=== PATIENT | female | born 1980 | race Caucasian/White ===

== ENCOUNTER 2016-09-02 19:21 | Emergency (ER) | payer OTHER ==
[2016-09-02 19:38] VITALS: RESP 18
[2016-09-02] MEDS ORDERED: SODIUM CHLORIDE 0.9% 1,000 ML IV STA (20:24)
[2016-09-02] MEDS ORDERED: AMPICILLIN-SULBACTAM 3 GM in SODIUM CHLORIDE 0.9% 100 ML IVPB STA (20:25)
[2016-09-02] MEDS ORDERED: RX INFO: IV CONTRAST WAS GIVEN 1 EACH MISC MISCELLANE PRN (20:25)
--- NOTE | 2016-09-02 20:49 | ED ---
ENT HPI - General Chief complaint: Dental/Oral Stated complaint: dental Time Seen by Provider: 09/02/16 19:42 Source: patient, RN notes reviewed Mode of arrival: ambulatory Limitations: no limitations - History of Present Illness Initial comments: 35 yo female presents to the ER with cc of left sided jaw pain. Patient states that she had her tooth removed by Dr. Toussaint 2 days ago due to an abscess that was there for 3 weeks. Try outpatient antibiotics. Patient states now it' s more swollen extending under the chin and she is having pain. Patient denies any new fever. Patient states she was concerned due to the patient's symptoms so she thought that she should be seen. Patient denies any cough cold.Patient denies any recent fever, chills, shortness of breath, chest pain, back pain, abdominal pain, nausea vomiting, numbness or tingling, dysuria or hematuria, constipation or diarrhea, headaches or visual changes, or any other current symptoms. - Related Data Home Medications Medication Instructions Recorded Confirmed Clindamycin [Cleocin] 300 mg PO TID 09/02/16 09/02/16 Gabapentin [Neurontin] 300 mg PO TID PRN 09/02/16 09/02/16 Ibuprofen [Motrin] 600 mg PO Q6HR PRN 09/02/16 09/02/16 Allergies Allergy/AdvReac Type Severity Reaction Status Date / Time No Known Allergies Allergy Verified 09/02/16 20:51 Review of Systems ROS Statement: Those systems with pertinent positive or pertinent negative responses have been documented in the HPI. ROS Other: All systems not noted in ROS Statement are negative. Past Medical History Past Medical History: No Reported History History of Any Multi-Drug Resistant Organisms: None Reported Additional Past Surgical History / Comment(s): Right hip, open dislocation surgery Past Psychological History: No Psychological Hx Reported Smoking Status: Current every day smoker Past Alcohol Use History: None Reported Past Drug Use History: None Reported General Exam Limitations: no limitations General appearance: alert, in no apparent distress Head exam: Present: other (She appears in splint the left lower jaw that extends to the left lower neck.) Eye exam: Present: normal appearance, PERRL, EOMI. Absent: scleral icterus, conjunctival injection, periorbital swelling ENT exam: Present: normal exam, mucous membranes moist Neck exam: Present: normal inspection. Absent: tenderness, meningismus, lymphadenopathy Respiratory exam: Present: normal lung sounds bilaterally. Absent: respiratory distress, wheezes, rales, rhonchi, stridor Cardiovascular Exam: Present: regular rate, normal rhythm, normal heart sounds. Absent: systolic murmur, diastolic murmur, rubs, gallop, clicks Extremities exam: Present: normal inspection, full ROM, normal capillary refill. Absent: tenderness, pedal edema, joint swelling, calf tenderness Back exam: Present: normal inspection Skin exam: Present: warm, dry, intact, normal color. Absent: rash Course Vital Signs 09/02/16 19:35 Temperature 99.3 F Pulse Rate 80 Respiratory 18 Rate Blood Pressure 171/91 O2 Sat by Pulse 99 Oximetry Medical Decision Making - Medical Decision Making 35-year-old female presents emergency Department chief complaint of concern for dental infection. Patient states her oral surgeon Center here to be admitted. At this time Dr. Toussaint was discussed with and he would like Dr. King consult that he was covering for him and the patient admitted to medicine with Dr. Adan. At this time we will continue the Unasyn and start Decadron for the patient. Does appear there is concern for abscess at mandible area. Patient is in agreement with this plan all questions have been answered. - Lab Data Result diagrams: 09/02/16 20:54 09/02/16 20:54 Lab Results 09/02/16 09/02/16 09/02/16 Range/Units 20:54 20:54 20:54 WBC 11.2 H (3.8-10.6) k/uL RBC 4.59 (3.80-5.40) m/uL Hgb 13.0 (11.4-16.0) gm/dL Hct 37.4 (34.0-46.0) % MCV 81.6 (80.0-100.0) fL MCH 28.3 (25.0-35.0) pg MCHC 34.7 (31.0-37.0) g/dL RDW 13.1 (11.5-15.5) % Plt Count 296 (150-450) k/uL Neutrophils % 61 % Lymphocytes % 28 % Monocytes % 5 % Eosinophils % 3 % Basophils % 1 % Neutrophils # 6.8 (1.3-7.7) k/uL Lymphocytes # 3.1 (1.0-4.8) k/uL Monocytes # 0.6 (0-1.0) k/uL Eosinophils # 0.4 (0-0.7) k/uL Basophils # 0.1 (0-0.2) k/uL Sodium 142 (137-145) mmol/L Potassium 3.9 (3.5-5.1) mmol/L Chloride 109 H (98-107) mmol/L Carbon Dioxide 21 L (22-30) mmol/L Anion Gap 12 mmol/L BUN 9 (7-17) mg/dL Creatinine 0.60 (0.52-1.04) mg/dL Est GFR (MDRD) Af Amer >60 (>60 ml/min/1.73 sqM) Est GFR (MDRD) Non-Af >60 (>60 ml/min/1.73 sqM) Glucose 82 (74-99) mg/dL Plasma Lactic Acid Yony 0.9 (0.7-2.0) mmol/L Calcium 9.3 (8.4-10.2) mg/dL Total Bilirubin 0.3 (0.2-1.3) mg/dL AST 19 (14-36) U/L ALT 27 (9-52) U/L Alkaline Phosphatase 90 (38-126) U/L Total Protein 6.5 (6.3-8.2) g/dL Albumin 3.8 (3.5-5.0) g/dL - Radiology Data Radiology results: report reviewed, image reviewed Disposition Clinical Impression: Mandibular abscess, Failure of outpatient treatment [facility] Condition: Stable Referrals: None,Stated [Primary Care Provider] - 1-2 days Time of Disposition: :57 Decision Date: 09/02/16 Decision Time: :57
[2016-09-02 21:16] LABS: Basophils # (A) 0.1 k/uL (0-0.2); Basophils % (A) 1 %; CH 26.4; CHCM 32.4; Eosinophils # (A) 0.4 k/uL (0-0.7); Eosinophils % (A) 3 %; HCT 37.4 % (34.0-46.0); HDW 2.84; Luc # (Auto) 0.31; Luc % (Auto) 3; Lymphocytes # (A) 3.1 k/uL (1.0-4.8); Lymphocytes % (A) 28 %; MCH 28.3 pg (25.0-35.0); MCHC 34.7 g/dL (31.0-37.0); MCV 81.6 fL (80.0-100.0); Mean Platelet Volume 7.8; Monocytes # (A) 0.6 k/uL (0-1.0); Monocytes % (A) 5 %; Neutrophils # (A) 6.8 k/uL (1.3-7.7); Neutrophils % (A) 61 %; RBC 4.59 m/uL (3.80-5.40); RDW 13.1 % (11.5-15.5); WBC 11.2 k/uL (3.8-10.6); WBC (Perox) 11.66
[2016-09-02] MEDS ORDERED: KETOROLAC 30 MG/ML 1 ML VIAL IVP STA (21:40)
[2016-09-02 21:43] LABS: ALT 27 U/L (9-52); AST 19 U/L (14-36); Alkaline Phosphatase 90 U/L (38-126); Anion Gap 12 mmol/L; Blood Urea Nitrogen 9 mg/dL (7-17); Calcium 9.3 mg/dL (8.4-10.2); Carbon Dioxide 21 mmol/L (22-30); Chloride 109 mmol/L (98-107); Glucose 82 mg/dL (74-99); Non-African American GFR(MDRD) >60 (>60 ml/min/1.73 sqM); Potassium 3.9 mmol/L (3.5-5.1); Sodium 142 mmol/L (137-145); Total Bilirubin 0.3 mg/dL (0.2-1.3); Total Protein 6.5 g/dL (6.3-8.2)
--- NOTE | 2016-09-02 22:01 | CT ---
EXAMINATION TYPE: CT soft tissue neck w con DATE OF EXAM: 09/02/2016 9:51 PM COMPARISON: NONE HISTORY: Left jaw swelling x 3 months, worsening. CT DLP: 430.50 mGycm Automated exposure control for dose reduction was used. CONTRAST: CT scan of the neck is performed following with IV Contrast, patient injected with 100 mL of Omnipaqu e 300. Axial images are obtained, coronal and sagittal reformatted images are reviewed. FINDINGS: There is normal branching pattern of the great vessels on the aortic arch. There is an enlarged thyro id gland on the left more than the right consistent with multinodular goiter. Trachea appears normal. There is no evidence of a pharyngeal mass. Epiglottis appears normal. There is normal contrast opaci fication of carotid arteries and jugular veins. Parotid glands are symmetric. The submandibular saliv sujey glands are fairly symmetric. There is a 1.4 cm midline submandibular enlarged lymph node. The tonsils are of limited of normal size. There is abnormal increased density around the left body of the mandible extending to the angle. This measures 3 x 2 cm. There are a few air bubbles in the soft tissues posterior to the low-density mass . There are a few other submandibular lymph nodes that measure up to 1 cm. There is normal aeration of the maxillary sinuses. Maxilla appears intact. The mandible appears intac t. I see no focal bone destruction. There are bilateral anterior triangle cervical lymph nodes that m easure up to 1.5 cm. IMPRESSION: There is bilateral anterior triangle cervical adenopathy. There are a few also posterior small cervical lymph nodes up to 1 cm. There is submandibular adenopathy. There is a mixed density mass at the body of the mandible on the left side that contains soft tissue density and low attenuation fluid density. This could relate to an abscess and phlegmon. I also consi ayaka tumor with central necrosis since the patient has a history of jaw swelling for 3 months. No sign of osteomyelitis.
[2016-09-02] MEDS ORDERED: ONDANSETRON 4 MG/2 ML VIAL IVP PRN (22:57)
[2016-09-02] MEDS ORDERED: NALOXONE 0.4 MG/ML 1 ML VIAL IV PRN (22:57)
[2016-09-02] MEDS ORDERED: IBUPROFEN 400 MG TAB PO PRN (22:57)
[2016-09-02] MEDS ORDERED: ACETAMINOPHEN TAB 325 MG TAB PO PRN (22:57)
[2016-09-02] MEDS ORDERED: KETOROLAC 30 MG/ML 1 ML VIAL IVP PRN (22:57)
[2016-09-02] MEDS ORDERED: GABAPENTIN 300 MG CAP PO PRN (22:59)
[2016-09-02] MEDS ORDERED: DEXAMETHASONE SOD PHOSPHATE 10 MG/ML 1 ML VIAL IV STA (22:59)
[2016-09-02] MEDS ORDERED: DEXAMETHASONE SOD PHOSPHATE 4 MG/ML 1 ML VIAL IV PRN (22:59)
[2016-09-02] MEDS ORDERED: SODIUM CHLORIDE 0.9% 1,000 ML IV SCH (23:00)
[2016-09-02 23:46] VITALS: BP 149/95; PULSE 79; TEMP 98
[2016-09-03] MEDS ORDERED: AMPICILLIN-SULBACTAM 3 GM in SODIUM CHLORIDE 0.9% 100 ML IVPB SCH ×2
== END 2016-09-02 23:53 | disposition left against medical advice (07) ==
LOC: EC 19:21
DX: M27.2 Inflammatory conditions of jaws (principal); F17.200 Nicotine dependence, unspecified, uncomplicated
CPT/HCPCS: 99284; 96365; 96375 ×2; 36415; 80053; 83605; 85025; 87040; 70491; J1100; J1885; Q9967; J0295

== ENCOUNTER 2018-08-02 13:13 | Emergency (ER) | payer OTHER ==
[2018-08-02 13:18] VITALS: RESP 16
--- NOTE | 2018-08-02 15:09 | ED ---
General Adult HPI - General Chief complaint: Recheck/Abnormal Lab/Rx Stated complaint: post surgical complications Time Seen by Provider: 08/02/18 13:24 Source: patient, RN notes reviewed Mode of arrival: ambulatory Limitations: no limitations - History of Present Illness Initial comments: 37-year-old female presents for clearance to substance abuse facility. Patient states that she had a gallbladder surgery one month ago by Dr. herrera at [facility] and did have some infectious complications afterwards. States this resolved about 3 weeks ago. States she had some wound dehiscence and had seen Dr. herrera for this and everything was treated. She has not had any complete patient's for 3 weeks. She states the [facility] abuse center is requiring her to have clearance without restrictions for rehab. States that she tried to get into Dr. herrera but his office is weeks out and she cannot wait that long. Patient is denying any fevers, abdominal pain, nausea or vomiting, diarrhea. States wounds have healed well and she is not having any complications.Patient has no other complaints at this time including shortness of breath, chest pain, abdominal pain, nausea or vomiting, headache, or visual changes. - Related Data Home Medications Medication Instructions Recorded Confirmed Clindamycin [Cleocin] 300 mg PO TID 09/02/16 09/02/16 Gabapentin [Neurontin] 300 mg PO TID PRN 09/02/16 09/02/16 Ibuprofen [Motrin] 600 mg PO Q6HR PRN 09/02/16 09/02/16 Allergies Allergy/AdvReac Type Severity Reaction Status Date / Time No Known Allergies Allergy Verified 08/02/18 13:18 Review of Systems ROS Statement: Those systems with pertinent positive or pertinent negative responses have been documented in the HPI. ROS Other: All systems not noted in ROS Statement are negative. Past Medical History Past Medical History: No Reported History History of Any Multi-Drug Resistant Organisms: None Reported Past Surgical History: Cholecystectomy Additional Past Surgical History / Comment(s): Right hip, open dislocation surgery Past Psychological History: No Psychological Hx Reported Smoking Status: Current every day smoker Past Alcohol Use History: None Reported Past Drug Use History: None Reported General Exam Limitations: no limitations General appearance: alert, in no apparent distress Head exam: Present: atraumatic, normocephalic, normal inspection Eye exam: Present: normal appearance, PERRL, EOMI. Absent: scleral icterus, conjunctival injection, periorbital swelling ENT exam: Present: normal exam, mucous membranes moist Neck exam: Present: normal inspection, full ROM. Absent: tenderness, meningism us, lymphadenopathy Respiratory exam: Present: normal lung sounds bilaterally. Absent: respiratory distress, wheezes, rales, rhonchi, stridor Cardiovascular Exam: Present: regular rate, normal rhythm, normal heart sounds. Absent: bradycardia, tachycardia, irregular rhythm GI/Abdominal exam: Present: soft, normal bowel sounds, other (There are small incisions noted from a laparoscopic cholecystectomy, and no evidence of wound dehiscence, no infectious process at this time. No abdominal tenderness whatsoever. No erythema.). Absent: distended, tenderness, guarding, rebound, rigid Neurological exam: Present: alert, oriented X3, CN II-XII intact Psychiatric exam: Present: normal affect, normal mood Course Vital Signs 08/02/18 13:15 Temperature 98.3 F Pulse Rate 101 H Respiratory 16 Rate Blood Pressure 142/93 O2 Sat by Pulse 100 Oximetry Medical Decision Making - Medical Decision Making 37-year-old female presents to the emergency department for a chief complaint of clearance to substance abuse center. Patient states she needs this for methamphetamine usage. Patient had ago but her surgery a month ago so is requiring clearance from the rehab center. Unable to get into her surgeon. On exam patient is well-appearing. Abdomen is nontender. No evidence for infection. No concerning symptoms. Patient will be given clearance that she cannot get into her surgeon however I did recommend she either return here or follow up with her surgeon if she has any symptoms or problems with her surgery which she does agree to do. Disposition Clinical Impression: Normal exam Disposition: HOME SELF-CARE Condition: Good Instructions (If sedation given, give patient instructions): Medical Clearance for Substance Abuse Treatment (ED) Additional Instructions: Please follow up with primary care in 1-2 days. Return here if you have any worsening symptoms. Is patient prescribed a controlled substance at d/c from ED?: No Referrals: Laura Hayes MD [STAFF PHYSICIAN] - 1-2 days Time of Disposition: 15:05
[2018-08-02 15:16] VITALS: BP 147/87; PULSE 90; TEMP 98.2
== END 2018-08-02 15:15 | disposition home or self-care (01) ==
LOC: EC 13:13
DX: Z00.00 Encounter for general adult medical examination without abnormal findings (principal); F17.200 Nicotine dependence, unspecified, uncomplicated; Z90.49 Acquired absence of other specified parts of digestive tract
CPT/HCPCS: 99283

== ENCOUNTER 2021-01-30 18:55 | Emergency (ER) | payer OTHER ==
[2021-01-30 19:36] VITALS: BP 172/80; PULSE 100; RESP 22; TEMP 98.3
[2021-01-30] MEDS ORDERED: MORPHINE SULFATE 4 MG/ML SYRINGE IM STA (20:35)
[2021-01-30] MEDS ORDERED: ACET/COD 300 MG/30 MG STARTER PACK 6 TAB BTL PO STA (20:43)
--- NOTE | 2021-01-30 20:44 | ED ---
General Adult HPI - General Chief complaint: Dental/Oral Stated complaint: Tooth pain Time Seen by Provider: 01/30/21 20:25 Source: patient, RN notes reviewed, old records reviewed Mode of arrival: ambulatory Limitations: no limitations - History of Present Illness Initial comments: This is a tearful 40-year-old female who presents to the emergency room with 8 days of right lower dental pain. Patient states that the tooth broke 2 months ago however for the past 8 days has had causes increased pain and swelling. She denies any fevers, nausea vomiting or diarrhea. She states that she cannot get any pain relief and has been taking Motrin at home. She states that she does not have a dentist to follow up with. She is a smoker. Denies any other medical history. -: days(s) (8) Location: mouth (right lower tooth) Severity scale (1-10): 8 Quality: aching Consistency: constant Improves with: none Worsens with: none Associated Symptoms: denies other symptoms Treatments Prior to Arrival: NSAID - Related Data Home Medications Medication Instructions Recorded Confirmed Gabapentin [Neurontin] 300 mg PO TID PRN 09/02/16 08/02/18 Ibuprofen [Motrin] 600 mg PO Q6HR PRN 09/02/16 08/02/18 Previous Rx's Medication Instructions Recorded Ibuprofen [Motrin] 600 mg PO Q8HR PRN #30 tab 01/30/21 Penicillin V Potassium [Pen Vee K] 500 mg PO QID 10 Days #40 tablet 01/30/21 Allergies Allergy/AdvReac Type Severity Reaction Status Date / Time No Known Allergies Allergy Verified 01/30/21 19:36 Review of Systems ROS Statement: Those systems with pertinent positive or pertinent negative responses have been documented in the HPI. ROS Other: All systems not noted in ROS Statement are negative. Past Medical History Past Medical History: No Reported History History of Any Multi-Drug Resistant Organisms: None Reported Past Surgical History: Cholecystectomy Additional Past Surgical History / Comment(s): Right hip, open dislocation surgery Past Psychological History: No Psychological Hx Reported Smoking Status: Current every day smoker Past Alcohol Use History: None Reported Past Drug Use History: None Reported General Exam Limitations: no limitations General appearance: alert, in distress (Related to pain) Head exam: Present: atraumatic, normocephalic, normal inspection Eye exam: Present: normal appearance, EOMI ENT exam: Present: mucous membranes moist Expanded Mouth exam: Present: tongue normal, tongue elevation. Absent: drooling, trismus, muffled voice Teeth exam: Present: dental caries (multiple), dental tenderness # (31), other (Submandibular right sided lymphadenopathy) Neck exam: Present: normal inspection. Absent: tenderness, meningismus, lymphadenopathy Respiratory exam: Present: normal lung sounds bilaterally. Absent: respiratory distress, wheezes, rales, rhonchi, stridor Cardiovascular Exam: Present: regular rate, normal rhythm, normal heart sounds. Absent: systolic murmur, diastolic murmur, rubs, gallop, clicks Extremities exam: Present: full ROM, normal capillary refill. Absent: tenderness, pedal edema, joint swelling, calf tenderness Neurological exam: Present: alert, oriented X3 Psychiatric exam: Present: normal affect, normal mood, other (tearful) Skin exam: Present: warm, dry, intact, normal color. Absent: rash, cyanosis, diaphoretic Course Vital Signs 01/30/21 19:33 Temperature 98.3 F Pulse Rate 100 Respiratory 22 Rate Blood Pressure 172/80 O2 Sat by Pulse 99 Oximetry Medical Decision Making - Medical Decision Making Patient presents with right tooth #18 dental pain. Patient states that she fractured the tooth 2 months ago and for the past 8 days has had increasing pain with right-sided jaw tenderness and swelling. Patient denies any fevers, nausea vomiting or diarrhea. She states that it is causing her to have a headache as well. She was given morphine the emergency room and a prescription for antibiotics and directed to follow up with a dentist as soon as possible. She was also directed to use Motrin every 6 hours for pain. She was given a referral for community [facility]. She is also instructed to return to the emergency room with any new or concerning symptoms including increased pain, fevers or swelling. Case discussed with Dr. Mcginnis. Disposition Clinical Impression: Dental abscess Disposition: HOME SELF-CARE Condition: Good Instructions (If sedation given, give patient instructions): Dental Abscess (ED) Additional Instructions: Take antibiotics as prescribed and follow-up with Dentist as soon as possible. [facility] in [place] [phone]. Please consider smoking cessation. Return to the emergency room with any increased pain or fevers. Prescriptions: Ibuprofen [Motrin] 600 mg PO Q8HR PRN #30 tab PRN Reason: Pain Penicillin V Potassium [Pen Vee K] 500 mg PO QID 10 Days #40 tablet Is patient prescribed a controlled substance at d/c from ED?: No Referrals: None,Stated [Primary Care Provider] - 1-2 days Time of Disposition: 20:43
== END 2021-01-30 21:18 | disposition home or self-care (01) ==
LOC: EC 18:55
DX: K04.7 Periapical abscess without sinus (principal); F17.200 Nicotine dependence, unspecified, uncomplicated; Z90.49 Acquired absence of other specified parts of digestive tract
CPT/HCPCS: 99282; 96372; J2270